=== PATIENT | female | born 1950 | race Caucasian/White ===

== ENCOUNTER → 2017-12-10 | Outpatient (CLI) | payer MEDICARE, OTHER | LOC: M CARPUL 09:07 | DX: Z51.81 Encounter for therapeutic drug level monitoring (principal); Z79.899 Other long term (current) drug therapy; C50.919 Malignant neoplasm of unspecified site of unspecified female breast | CPT/HCPCS: 93306 ==

== ENCOUNTER → 2020-10-31 | Outpatient (REF) | payer MEDICARE, OTHER ==
[~2020-10-31] MED LIST: LETR2.5T2 PO
[2020-10-31 11:58] LABS: BASO # 0.1 10^3/uL (0.0-0.2); BASO % 1.4 % (0.0-1.0); EOS # 0.1 10^3/uL (0.0-0.5); EOS % 0.9 % (0.0-3.0); HEMATOCRIT 36.4 % (36.0-47.0); HEMOGLOBIN 12.3 g/dl (12.0-15.5); LYMPH # 1.1 10^3/uL (1.5-5.0); LYMPH % 19.4 % (24.0-44.0); MEAN CORPUSCULAR HEMOGLOBIN 31.1 pg (27.0-33.0); MEAN CORPUSCULAR HGB CONC 33.8 g/dl (32.0-36.5); MEAN CORPUSCULAR VOLUME 91.9 fl (80.0-96.0); MONO # 0.6 10^3/uL (0.0-0.8); MONO % 10.5 % (2.0-8.0); NEUTROPHILS # 3.8 10^3/uL (1.5-8.5); NEUTROPHILS % 67.3 % (36.0-66.0); PLATELET COUNT, AUTOMATED 255 10^3/uL (150-450); RED BLOOD COUNT 3.96 10^6/uL (4.00-5.40); WHITE BLOOD COUNT 5.7 10^3/uL (4.0-10.0)
[2020-10-31 12:55] LABS: ALBUMIN 3.6 GM/DL (3.2-5.2); ALT/SGPT 23 U/L (12-78); BILIRUBIN,TOTAL 0.6 MG/DL (0.2-1.0); BLOOD UREA NITROGEN 12 MG/DL (7-18); CALCIUM LEVEL 8.3 MG/DL (8.8-10.2); CARBON DIOXIDE LEVEL 26 MEQ/L (21-32); CHLORIDE LEVEL 108 MEQ/L (98-107); CREATININE FOR GFR 0.57 MG/DL (0.55-1.30); FERRITIN 12 NG/ML (8-252); GLOMERULAR FILTRATION RATE > 60.0 (>45); GLUCOSE, FASTING 110 MG/DL (70-100); IRON (FE) 52 UG/DL (50-170); PERCENT SATURATION 13.2 % (13.2-45.0); POTASSIUM SERUM 4.1 MEQ/L (3.5-5.1); SODIUM LEVEL 139 MEQ/L (136-145); TOTAL IRON BINDING CAPACITY 394 UG/DL (250-450); TOTAL PROTEIN 6.6 GM/DL (6.4-8.2)
[2020-10-31 14:03] LABS: VITAMIN B12 LEVEL 334 PG/ML (247-911)
== END ==
LOC: M LAB REF 10:38
DX: C50.211 Malignant neoplasm of upper-inner quadrant of right female breast (principal); N39.0 Urinary tract infection, site not specified; D64.81 Anemia due to antineoplastic chemotherapy; R52 Pain, unspecified; Z79.811 Long term (current) use of aromatase inhibitors; M85.80 Other specified disorders of bone density and structure, unspecified site; Z45.2 Encounter for adjustment and management of vascular access device; N64.4 Mastodynia

== ENCOUNTER → 2021-10-10 | Outpatient (CLI) | payer MEDICARE, OTHER ==
[~2021-10-10] MED LIST changes: +METR-265 PO; +NEOM500T PO
== END ==
LOC: M ADAMS 10:10
PROVIDERS: ATTEND Physician Assistant
DX: Z01.818 Encounter for other preprocedural examination (principal); K44.9 Diaphragmatic hernia without obstruction or gangrene; Z79.899 Other long term (current) drug therapy

== ENCOUNTER → 2021-10-10 | Outpatient (REF) | payer MEDICARE, OTHER ==
[~2021-10-10] MED LIST changes: -METR-265 PO; -NEOM500T PO
[2021-10-10 14:39] LABS: BLOOD UREA NITROGEN 15 MG/DL (7-18); CREATININE FOR GFR 0.96 MG/DL (0.55-1.30); GLOMERULAR FILTRATION RATE > 60.0 (>45)
== END ==
LOC: M LABDRWAD 12:59
PROVIDERS: ATTEND Surgery
DX: C18.3 Malignant neoplasm of hepatic flexure (principal)

== ENCOUNTER → 2021-10-10 | Outpatient (REF) | payer MEDICARE, OTHER ==
[2021-10-10 14:13] LABS: APPEARANCE, URINE CLEAR (CLEAR); BACTERIA, URINE AUTO NEGATIVE (NEGATIVE); BILIRUBIN, URINE AUTO NEGATIVE (NEGATIVE); BLOOD, URINE BLOOD NEGATIVE (NEGATIVE); COLOR, URINE YELLOW (YELLOW); GLUCOSE, URINE (UA) AUTO NEGATIVE (NEGATIVE); KETONE, URINE AUTO NEGATIVE (NEGATIVE); LEUKOCYTE ESTERASE, URINE AUTO NEGATIVE (NEGATIVE); MUCUS, URINE SMALL (NEGATIVE); NITRITE, URINE AUTO NEGATIVE (NEGATIVE); PROTEIN, URINE AUTO NEGATIVE (NEGATIVE); RBC, URINE AUTO 0 /HPF (0-3); SPECIFIC GRAVITY URINE AUTO 1.016 (1.002-1.035); SQUAMOUS EPITHELIAL CELL UR AU 0 /HPF (0-6); UROBILINOGEN, URINE AUTO 0.2 mg/dL (0.0-2.0); WBC, URINE AUTO 1 /HPF (0-3)
== END ==
LOC: M SFHCADAM 09:15
PROVIDERS: ATTEND Physician Assistant
DX: Z01.818 Encounter for other preprocedural examination (principal); Z79.899 Other long term (current) drug therapy

== ENCOUNTER → 2021-10-11 | Outpatient (CLI) | payer MEDICARE, OTHER ==
[~2021-10-11] MED LIST changes: +METR-265 PO; +NEOM500T PO
== END ==
LOC: M LABSMTC 09:28
PROVIDERS: ATTEND Anesthesiology
DX: Z20.828 Contact with and (suspected) exposure to other viral communicable diseases (principal); Z11.59 Encounter for screening for other viral diseases

== ENCOUNTER → 2021-10-12 | Outpatient (CLI) | payer MEDICARE, OTHER ==
[~2021-10-12] MED LIST changes: +GASTROGRAFIN SOLUTION 30ML (Q9963) As Ordered ONE; +ISOVUE-370 76% 100ML VIAL As Ordered ONE
== END ==
LOC: M RAD 07:48
PROVIDERS: ATTEND Surgery
DX: C18.9 Malignant neoplasm of colon, unspecified (principal); J98.11 Atelectasis; K44.9 Diaphragmatic hernia without obstruction or gangrene

== ENCOUNTER 2021-10-13 06:02 | Inpatient (IN) | payer MEDICARE, OTHER ==
[~2021-10-13] VITALS: Ht 162.6 cm; Wt 71.1 kg
[2021-10-13] VITALS (7 sets, daily range): BP systolic 117–139; BP diastolic 70–80
[~2021-10-13 06:02] MED LIST changes: +ERTAPENEM SODIUM 1 GM in NS MINI-BAG PLUS 50 ML IV ONE; -GASTROGRAFIN SOLUTION 30ML (Q9963) As Ordered ONE; -ISOVUE-370 76% 100ML VIAL As Ordered ONE; -METR-265 PO; -NEOM500T PO
[2021-10-13] MEDS ORDERED: LR 1,000 ML IV SCH ×2 (06:30→10:15)
[2021-10-13] MEDS ORDERED: METR-265 PO (06:42)
[2021-10-13] MEDS ORDERED: NEOM500T PO (06:42)
[2021-10-13] MEDS ORDERED: ONDANSETRON 4MG 2ML VIAL As Ordered ONE (07:14)
[2021-10-13] MEDS ORDERED: ROCURONIUM BROMIDE 50 MG/5 ML VIAL As Ordered ONE ×2 (07:14→08:47)
[2021-10-13] MEDS ORDERED: dexameTHASONE 4 MG/ML 1ML VIAL (J1100 PER 1MG) As Ordered ONE (07:14)
[2021-10-13] MEDS ORDERED: ACETAMINOPHEN 1000MG 100ML IV BTL (OFIRMEV) (J0131 PER 10MG) As Ordered ONE (07:14)
[2021-10-13] MEDS ORDERED: propofoL 200 MG/20 ML VIAL As Ordered ONE (07:14)
[2021-10-13] MEDS ORDERED: LIDOCAINE 2% 100MG/5ML SDV (FOR ANES.) As Ordered ONE (07:14)
[2021-10-13] MEDS ORDERED: fentaNYL 100 MCG/2 ML INJECTION As Ordered ONE ×2 (07:17→08:55)
[2021-10-13] MEDS ORDERED: MIDAZOLAM INJ 2MG/2ML VIAL (J2250 PER 1MG) As Ordered ONE (07:17)
[2021-10-13] MEDS ORDERED: BUPIVACAINE/EPIN 0.25% 30 ML VIAL As Ordered ONE (07:29)
[2021-10-13] MEDS ORDERED: GLUCAGON INJ 1MG VIAL As Ordered ONE (07:30)
[2021-10-13] MEDS ORDERED: PHENYLEPHRINE 10MG/ML 1ML VIAL (J2370 PER 1) As Ordered ONE (08:18)
[2021-10-13] MEDS ORDERED: ePHEDrine SULFATE 25 MG/5 ML(5MG/ML) SYRINGE As Ordered ONE (08:48)
[2021-10-13] MEDS ORDERED: PHENYLephrine 500MCG 5ML (100MCG/ML) SYRINGE As Ordered ONE (08:48)
[2021-10-13] MEDS ORDERED: KETOROLAC 60MG 2ML VIAL As Ordered ONE (08:49)
[2021-10-13] MEDS ORDERED: SUGAMMADEX SODIUM 500 MG/5 ML VIAL (BRIDION) As Ordered ONE (08:49)
[2021-10-13] MEDS ORDERED: BUPIVACAINE HCL 0.25% 10ML VIAL As Ordered ONE (09:52)
[2021-10-13] MEDS ORDERED: BUPIVACAINE LIPOSOME/PF 1.3% 20ML VIAL (13.3MG/ML)(EXPAREL) As Ordered ONE (09:52)
[2021-10-13] MEDS ORDERED: METOCLOPRAMIDE INJ 10MG/2ML VIAL (J2765 PER 1) As Ordered ONE (10:09)
[2021-10-13] MEDS ORDERED: fentaNYL 100 MCG/2 ML INJECTION IV PRN (10:15)
[2021-10-13] MEDS ORDERED: ONDANSETRON 4MG 2ML VIAL IV PRN (10:15)
[2021-10-13] MEDS ORDERED: HYDROMORPHONE HCL 0.5 MG/ 0.5 ML SYRINGE (J1170 PER 1) IV PRN (10:15)
[2021-10-13] MEDS ORDERED: oxyCODONE 5MG TAB PO PRN (10:15)
[2021-10-13] MEDS ORDERED: MORPHINE 2 MG/ML 1ML VIAL IV PRN ×2 (11:10)
[2021-10-13] MEDS ORDERED: ACETAMINOPHEN TAB 650MG DOSE (2X325MG) PO PRN (11:10)
[2021-10-13] MEDS: NS 1,000 ML IV SCH ×2 (13:28→21:01)
[2021-10-13] MEDS: KETOROLAC 30 MG/ML 1ML VIAL IV SCH ×2 (16:14→22:00)
[2021-10-14 02:00] VITALS: BP 125/72
[2021-10-14] MEDS: KETOROLAC 30 MG/ML 1ML VIAL IV SCH ×4 (04:00→22:02)
[2021-10-14] MEDS: NS 1,000 ML IV SCH ×2 (05:07→11:19)
[2021-10-14 06:00] VITALS: BP 123/74
[2021-10-14] MEDS ORDERED: cefTRIAXone SOD 1 GM in D5W MINI-BAG PLUS 50 ML IV ONE (06:10)
[2021-10-14 08:12] LABS: HEMATOCRIT 30.9 % (36.0-47.0); HEMOGLOBIN 10.4 g/dl (12.0-15.5); MEAN CORPUSCULAR HEMOGLOBIN 30.3 pg (27.0-33.0); MEAN CORPUSCULAR HGB CONC 33.7 g/dl (32.0-36.5); MEAN CORPUSCULAR VOLUME 90.1 fl (80.0-96.0); PLATELET COUNT, AUTOMATED 233 10^3/uL (150-450); RED BLOOD COUNT 3.43 10^6/uL (4.00-5.40)
[2021-10-14 08:35] LABS: BLOOD UREA NITROGEN 5 MG/DL (7-18); CALCIUM LEVEL 8.3 MG/DL (8.8-10.2); CARBON DIOXIDE LEVEL 26 MEQ/L (21-32); CHLORIDE LEVEL 113 MEQ/L (98-107); CREATININE FOR GFR 0.65 MG/DL (0.55-1.30); GLOMERULAR FILTRATION RATE > 60.0 (>45); GLUCOSE, FASTING 99 MG/DL (70-100); POTASSIUM SERUM 3.7 MEQ/L (3.5-5.1); SODIUM LEVEL 144 MEQ/L (136-145)
[2021-10-14] MEDS: PANTOPRAZOLE 40MG VIAL IV SCH (08:49)
[2021-10-14 10:00] VITALS: BP 124/74
[2021-10-14 14:00] VITALS: BP 126/76
[2021-10-14 18:00] VITALS: BP 130/78
[2021-10-14 21:27] VITALS: BP 126/84
[2021-10-15] VITALS (7 sets, daily range): BP systolic 106–134; BP diastolic 60–79
[2021-10-15] MEDS: KETOROLAC 30 MG/ML 1ML VIAL IV SCH ×5 (04:00→21:59)
[2021-10-15 06:05] LABS: HEMATOCRIT 34.5 % (36.0-47.0); HEMOGLOBIN 11.1 g/dl (12.0-15.5); MEAN CORPUSCULAR HEMOGLOBIN 29.1 pg (27.0-33.0); MEAN CORPUSCULAR HGB CONC 32.2 g/dl (32.0-36.5); MEAN CORPUSCULAR VOLUME 90.3 fl (80.0-96.0); PLATELET COUNT, AUTOMATED 235 10^3/uL (150-450); RED BLOOD COUNT 3.82 10^6/uL (4.00-5.40); WHITE BLOOD COUNT 12.1 10^3/uL (4.0-10.0)
[2021-10-15 06:21] LABS: BLOOD UREA NITROGEN 5 MG/DL (7-18); CALCIUM LEVEL 8.5 MG/DL (8.8-10.2); CARBON DIOXIDE LEVEL 29 MEQ/L (21-32); CHLORIDE LEVEL 109 MEQ/L (98-107); CREATININE FOR GFR 0.73 MG/DL (0.55-1.30); GLOMERULAR FILTRATION RATE > 60.0 (>45); GLUCOSE, FASTING 111 MG/DL (70-100); POTASSIUM SERUM 3.3 MEQ/L (3.5-5.1); SODIUM LEVEL 143 MEQ/L (136-145)
[2021-10-15] MEDS ORDERED: POTASSIUM CHLORIDE 10MEQ SR TABLET PO ONE (07:00)
[2021-10-15] MEDS ORDERED: NORCO, ANEXSIA 5/325MG TABLET (HYDROcodone/ACETAMINOPHEN) PO PRN (08:15)
[2021-10-15] MEDS: PANTOPRAZOLE 40MG VIAL IV SCH (08:22)
[2021-10-15] MEDS ORDERED: ISOVUE-370 76% 100ML VIAL As Ordered ONE (11:19)
[2021-10-15] MEDS ORDERED: AZITHROMYCIN INJ 500 MG, VIAL MATE ADAPTER 1 EACH in NS 250 ML IV SCH (20:00)
[2021-10-15] MEDS ORDERED: NS 500 ML IV ONE (23:45)
[2021-10-16] VITALS (9 sets, daily range): BP systolic 109–133; BP diastolic 57–78; O2SAT 92
[2021-10-16] MEDS ORDERED: cefTRIAXone SOD 1 GM in D5W MINI-BAG PLUS 50 ML IV SCH ×2
[2021-10-16] MEDS ORDERED: NS 1,000 ML IV ONE ×3 (00:05→10:20)
[2021-10-16 00:29] LABS: MAGNESIUM LEVEL 1.5 MG/DL (1.8-2.4)
[2021-10-16] MEDS: FLUTICASONE PROP 0.05% NASAL SPRAY 16 GM (FLONASE) NARES SCH ×3 (00:29→21:08)
[2021-10-16] MEDS: ALBUTEROL SULFATE 2.5 MG/0.5 ML INH NEB SOLN NEB SCH ×5 (00:29→20:16)
[2021-10-16] MEDS ORDERED: POTASSIUM CHLORIDE 10MEQ SR TABLET PO ONE (01:00)
[2021-10-16] MEDS: MAGNESIUM OXIDE 400MG TAB (MAG-OX) PO SCH ×2 (02:23→14:00)
[2021-10-16] MEDS: KETOROLAC 30 MG/ML 1ML VIAL IV SCH ×4 (03:00→21:09)
[2021-10-16 05:48] LABS: HEMATOCRIT 33.5 % (36.0-47.0); HEMOGLOBIN 11.1 g/dl (12.0-15.5); MEAN CORPUSCULAR HEMOGLOBIN 29.4 pg (27.0-33.0); MEAN CORPUSCULAR HGB CONC 33.1 g/dl (32.0-36.5); MEAN CORPUSCULAR VOLUME 88.9 fl (80.0-96.0); PLATELET COUNT, AUTOMATED 238 10^3/uL (150-450); RED BLOOD COUNT 3.77 10^6/uL (4.00-5.40); WHITE BLOOD COUNT 11.3 10^3/uL (4.0-10.0)
[2021-10-16 06:15] LABS: BLOOD UREA NITROGEN 10 MG/DL (7-18); CALCIUM LEVEL 7.9 MG/DL (8.8-10.2); CARBON DIOXIDE LEVEL 24 MEQ/L (21-32); CHLORIDE LEVEL 107 MEQ/L (98-107); CREATININE FOR GFR 0.76 MG/DL (0.55-1.30); GLOMERULAR FILTRATION RATE > 60.0 (>45); GLUCOSE, FASTING 119 MG/DL (70-100); POTASSIUM SERUM 3.8 MEQ/L (3.5-5.1); SODIUM LEVEL 139 MEQ/L (136-145)
[2021-10-16] MEDS ORDERED: NS 1,000 ML IV SCH (08:45)
[2021-10-16] MEDS ORDERED: PIPERACILLIN/TAZOBACTAM SOD 3.375 GM in D5W MINI-BAG PLUS 50 ML IV SCH ×2 (09:00→17:00)
[2021-10-16 10:08] LABS: ALBUMIN 2.8 GM/DL (3.2-5.2); BILIRUBIN,DIRECT 0.3 MG/DL (0.0-0.2); BILIRUBIN,TOTAL 0.9 MG/DL (0.2-1.0); CK-MB VALUE MASS < 1.0 NG/ML (<3.6); CPK CREATINE PHOSPHOKINASE 76 U/L (26-192); MAGNESIUM LEVEL 1.6 MG/DL (1.8-2.4); MB/CK RELATIVE INDEX 1.32 (< OR =4); TOTAL PROTEIN 6.9 GM/DL (6.4-8.2)
[2021-10-16] MEDS: PANTOPRAZOLE 40MG VIAL IV SCH (10:50)
[2021-10-16] MEDS ORDERED: VANCOMYCIN HCL 1,000 MG, VIAL MATE ADAPTER 1 EACH in NS 250 ML IV SCH (10:55)
[2021-10-16] MEDS: MAG SULF 1GM/100ML (MAG RUN) 1 GM in IV 1 EA IV SCH ×2 (11:00→12:00)
[2021-10-16 12:25] LABS: CK-MB VALUE MASS 1.2 NG/ML (<3.6); CPK CREATINE PHOSPHOKINASE 59 U/L (26-192); MB/CK RELATIVE INDEX 2.03 (< OR =4)
[2021-10-16] MEDS ORDERED: VANCOMYCIN HCL 1,000 MG, VIAL MATE ADAPTER 1 EACH in NS 250 ML IV ONE (13:00)
[2021-10-16] MEDS ORDERED: ONDANSETRON 4MG 2ML VIAL IV PRN (13:00)
[2021-10-16] MEDS: SIMETHICONE 80MG CHEW TAB PO SCH ×3 (13:00→21:09)
[2021-10-16] MEDS ORDERED: VANCOMYCIN HCL 750 MG, VIAL MATE ADAPTER 1 EACH in NS 250 ML IV ONE (14:00)
[2021-10-16] MEDS ORDERED: LIDOCAINE 1% MDV 20ML VIAL As Ordered ONE (14:53)
[2021-10-16 15:30] LABS: PH BODY FLUID 7.504 UNITS (NOT ESTABLISHED); SOURCE, BODY FLUID pH PLEURAL
[2021-10-16 15:58] LABS: APPEARANCE, BODY FLUID CLOUDY (CLEAR); PLEURAL FL COLOR AMBER (COLORLESS); SOURCE, BODY FLUID PLEURAL
[2021-10-16 17:34] LABS: AMYLASE, BODY FLUID 1001 U/L (NOT ESTABLISHED); CHOLESTEROL, BODY FLUID < 50 MG/DL (NOT ESTABLISHED); LDH, BODY FLUID 517 U/L (NOT ESTABLISHED); SOURCE, BODY FLUID ALBUMIN PLEURAL; SOURCE, BODY FLUID AMYLASE PLEURAL; SOURCE, BODY FLUID CHOL PLEURAL; SOURCE, BODY FLUID GLUCOSE PLEURAL; SOURCE, BODY FLUID LDH PLEURAL; SOURCE, BODY FLUID TOT PROTEIN PLEURAL; SOURCE, BODY FLUID TRIG PLEURAL; TOTAL PROTEIN, BODY FLUID 3.2 G/DL (NOT ESTABLISHED); TRIGLYCERIDE, BODY FLUID 38 MG/DL (NOT ESTABLISHED)
[2021-10-16] MEDS: PIPERACILLIN/TAZOBACTAM SOD 3.375 GM in D5W MINI-BAG PLUS 50 ML IV SCH (18:39)
[2021-10-17] MEDS ORDERED: VANCOMYCIN HCL 750 MG, VIAL MATE ADAPTER 1 EACH in NS 250 ML IV SCH ×3
[2021-10-17] MEDS: PIPERACILLIN/TAZOBACTAM SOD 3.375 GM in D5W MINI-BAG PLUS 50 ML IV SCH ×4 (01:37→18:21)
[2021-10-17] MEDS: KETOROLAC 30 MG/ML 1ML VIAL IV SCH ×4 (04:00→22:54)
[2021-10-17 04:26] VITALS: BP 103/58
[2021-10-17] MEDS: ALBUTEROL SULFATE 2.5 MG/0.5 ML INH NEB SOLN NEB SCH ×3 (07:29→20:00)
[2021-10-17 07:44] LABS: HEMATOCRIT 30.7 % (36.0-47.0); HEMOGLOBIN 10.5 g/dl (12.0-15.5); MEAN CORPUSCULAR HEMOGLOBIN 30.1 pg (27.0-33.0); MEAN CORPUSCULAR HGB CONC 34.2 g/dl (32.0-36.5); PLATELET COUNT, AUTOMATED 250 10^3/uL (150-450); RED BLOOD COUNT 3.49 10^6/uL (4.00-5.40); WHITE BLOOD COUNT 15.7 10^3/uL (4.0-10.0)
[2021-10-17 07:54] VITALS: BP 107/60
[2021-10-17 08:04] LABS: BLOOD UREA NITROGEN 14 MG/DL (7-18); CALCIUM LEVEL 8.3 MG/DL (8.8-10.2); CARBON DIOXIDE LEVEL 21 MEQ/L (21-32); CHLORIDE LEVEL 107 MEQ/L (98-107); CREATININE FOR GFR 0.82 MG/DL (0.55-1.30); GLOMERULAR FILTRATION RATE > 60.0 (>45); GLUCOSE, FASTING 103 MG/DL (70-100); POTASSIUM SERUM 3.6 MEQ/L (3.5-5.1); SODIUM LEVEL 135 MEQ/L (136-145)
[2021-10-17] MEDS: GASTROGRAFIN SOLUTION 30ML PO SCH ×4 (09:00→20:44)
[2021-10-17] MEDS: FLUTICASONE PROP 0.05% NASAL SPRAY 16 GM (FLONASE) NARES SCH ×2 (09:11→22:55)
[2021-10-17] MEDS: SIMETHICONE 80MG CHEW TAB PO SCH ×6 (09:12→21:00)
[2021-10-17] MEDS: PANTOPRAZOLE 40MG VIAL IV SCH (09:12)
[2021-10-17 11:57] VITALS: BP 116/67
[2021-10-17] MEDS ORDERED: VANCOMYCIN HCL 1,000 MG, VIAL MATE ADAPTER 1 EACH in NS 250 ML IV SCH ×2 (12:00→20:00)
[2021-10-17] MEDS ORDERED: VANCOMYCIN HCL 1,000 MG, VIAL MATE ADAPTER 1 EACH in NS 250 ML IV ONE (12:01)
[2021-10-17 15:53] VITALS: BP 119/66
[2021-10-17 20:00] VITALS: BP 115/56
[2021-10-17] MEDS ORDERED: ISOVUE-370 76% 100ML VIAL As Ordered ONE (21:40)
[2021-10-18] VITALS (17 sets, daily range): BP systolic 100–146; BP diastolic 55–77; O2SAT 91–100
[2021-10-18] MEDS: PIPERACILLIN/TAZOBACTAM SOD 3.375 GM in D5W MINI-BAG PLUS 50 ML IV SCH ×4 (01:37→18:00)
[2021-10-18] MEDS: ALBUTEROL SULFATE 2.5 MG/0.5 ML INH NEB SOLN NEB SCH ×4 (02:00→19:53)
[2021-10-18] MEDS: KETOROLAC 30 MG/ML 1ML VIAL IV SCH ×2 (04:13→09:25)
[2021-10-18 07:47] LABS: HEMATOCRIT 27.2 % (36.0-47.0); HEMOGLOBIN 9.1 g/dl (12.0-15.5); MEAN CORPUSCULAR HEMOGLOBIN 29.6 pg (27.0-33.0); MEAN CORPUSCULAR HGB CONC 33.5 g/dl (32.0-36.5); MEAN CORPUSCULAR VOLUME 88.6 fl (80.0-96.0); PLATELET COUNT, AUTOMATED 213 10^3/uL (150-450); RED BLOOD COUNT 3.07 10^6/uL (4.00-5.40)
[2021-10-18 08:04] LABS: CALCIUM LEVEL 8.5 MG/DL (8.8-10.2); GLOMERULAR FILTRATION RATE 58.7 (>45); POTASSIUM SERUM 3.1 MEQ/L (3.5-5.1)
[2021-10-18] MEDS ORDERED: NS 500 ML IV ONE (08:25)
[2021-10-18] MEDS: SIMETHICONE 80MG CHEW TAB PO SCH ×4 (09:00→21:02)
[2021-10-18] MEDS: FLUTICASONE PROP 0.05% NASAL SPRAY 16 GM (FLONASE) NARES SCH ×2 (09:25→21:03)
[2021-10-18] MEDS: PANTOPRAZOLE 40MG VIAL IV SCH (09:25)
[2021-10-18] MEDS: KCL 10MEQ/100ML SWI (KRUN) 10 MEQ in IV 1 EA IV SCH ×4 (10:18→15:49)
[2021-10-18] MEDS: VANCOMYCIN HCL 750 MG, VIAL MATE ADAPTER 1 EACH in NS 250 ML IV SCH ×2 (11:29→21:02)
[2021-10-18] MEDS ORDERED: LIDOCAINE 1% MDV 20ML VIAL As Ordered ONE ×2 (11:57→13:00)
[2021-10-19] VITALS (23 sets, daily range): BP systolic 94–148; BP diastolic 55–86; O2SAT 90–95
[2021-10-19] MEDS: ALBUTEROL SULFATE 2.5 MG/0.5 ML INH NEB SOLN NEB SCH ×4 (02:00→20:00)
[2021-10-19] MEDS: PIPERACILLIN/TAZOBACTAM SOD 3.375 GM in D5W MINI-BAG PLUS 50 ML IV SCH ×4 (02:10→18:14)
[2021-10-19 06:12] LABS: HEMATOCRIT 27.8 % (36.0-47.0); MEAN CORPUSCULAR HEMOGLOBIN 28.4 pg (27.0-33.0); MEAN CORPUSCULAR HGB CONC 32.4 g/dl (32.0-36.5); MEAN CORPUSCULAR VOLUME 87.7 fl (80.0-96.0); PLATELET COUNT, AUTOMATED 226 10^3/uL (150-450); RED BLOOD COUNT 3.17 10^6/uL (4.00-5.40); WHITE BLOOD COUNT 9.6 10^3/uL (4.0-10.0)
[2021-10-19 06:31] LABS: BLOOD UREA NITROGEN 9 MG/DL (7-18); CARBON DIOXIDE LEVEL 24 MEQ/L (21-32); CHLORIDE LEVEL 110 MEQ/L (98-107); CREATININE FOR GFR 0.87 MG/DL (0.55-1.30); GLOMERULAR FILTRATION RATE > 60.0 (>45); GLUCOSE, FASTING 104 MG/DL (70-100); POTASSIUM SERUM 3.3 MEQ/L (3.5-5.1); SODIUM LEVEL 140 MEQ/L (136-145)
[2021-10-19] MEDS ORDERED: POTASSIUM CHLORIDE 10MEQ SR TABLET PO ONE (07:45)
[2021-10-19] MEDS: PANTOPRAZOLE 40MG VIAL IV SCH (08:04)
[2021-10-19] MEDS: FLUTICASONE PROP 0.05% NASAL SPRAY 16 GM (FLONASE) NARES SCH ×2 (08:05→21:00)
[2021-10-19] MEDS: SIMETHICONE 80MG CHEW TAB PO SCH ×4 (08:05→21:20)
[2021-10-19] MEDS: VANCOMYCIN HCL 750 MG, VIAL MATE ADAPTER 1 EACH in NS 250 ML IV SCH ×2 (08:05→21:20)
[2021-10-19 08:47] LABS: VANCOMYCIN RANDOM 14.7 UG/ML
[2021-10-19] MEDS: FERROUS SULFATE 325MG TAB PO SCH ×2 (10:48→21:00)
[2021-10-20] VITALS (22 sets, daily range): BP systolic 94–142; BP diastolic 55–72; O2SAT 84–98
[2021-10-20] MEDS: PIPERACILLIN/TAZOBACTAM SOD 3.375 GM in D5W MINI-BAG PLUS 50 ML IV SCH ×4 (01:49→18:28)
[2021-10-20] MEDS: ALBUTEROL SULFATE 2.5 MG/0.5 ML INH NEB SOLN NEB SCH ×4 (02:34→19:31)
[2021-10-20 06:07] LABS: HEMATOCRIT 25.8 % (36.0-47.0); HEMOGLOBIN 8.5 g/dl (12.0-15.5); MEAN CORPUSCULAR HEMOGLOBIN 28.8 pg (27.0-33.0); MEAN CORPUSCULAR HGB CONC 32.9 g/dl (32.0-36.5); MEAN CORPUSCULAR VOLUME 87.5 fl (80.0-96.0); PLATELET COUNT, AUTOMATED 260 10^3/uL (150-450); RED BLOOD COUNT 2.95 10^6/uL (4.00-5.40); WHITE BLOOD COUNT 8.9 10^3/uL (4.0-10.0)
[2021-10-20 06:32] LABS: BLOOD UREA NITROGEN 5 MG/DL (7-18); CARBON DIOXIDE LEVEL 23 MEQ/L (21-32); CHLORIDE LEVEL 108 MEQ/L (98-107); CREATININE FOR GFR 0.77 MG/DL (0.55-1.30); GLOMERULAR FILTRATION RATE > 60.0 (>45); GLUCOSE, FASTING 100 MG/DL (70-100); POTASSIUM SERUM 3.1 MEQ/L (3.5-5.1); SODIUM LEVEL 139 MEQ/L (136-145)
[2021-10-20] MEDS ORDERED: POTASSIUM CHLORIDE 10MEQ SR TABLET PO ONE (07:35)
[2021-10-20] MEDS: SIMETHICONE 80MG CHEW TAB PO SCH ×5 (08:39→20:54)
[2021-10-20] MEDS: VANCOMYCIN HCL 750 MG, VIAL MATE ADAPTER 1 EACH in NS 250 ML IV SCH ×2 (08:39→20:52)
[2021-10-20] MEDS: FERROUS SULFATE 325MG TAB PO SCH ×2 (08:39→20:52)
[2021-10-20] MEDS: PANTOPRAZOLE 40MG VIAL IV SCH (08:39)
[2021-10-20] MEDS: FLUTICASONE PROP 0.05% NASAL SPRAY 16 GM (FLONASE) NARES SCH ×2 (08:39→20:52)
[2021-10-20] MEDS: KCL 10MEQ/100ML SWI (KRUN) 10 MEQ in IV 1 EA IV SCH ×4 (08:40→12:39)
[2021-10-21] MEDS: PIPERACILLIN/TAZOBACTAM SOD 3.375 GM in D5W MINI-BAG PLUS 50 ML IV SCH ×2 (01:09→06:26)
[2021-10-21] MEDS: ALBUTEROL SULFATE 2.5 MG/0.5 ML INH NEB SOLN NEB SCH ×3 (02:09→13:46)
[2021-10-21 05:33] VITALS: BP 135/73
[2021-10-21] MEDS ORDERED: SPIRONOLACTONE 25 MG TAB PO SCH (09:00)
[2021-10-21] MEDS ORDERED: bisoproloL fumarate 5 MG TAB PO SCH (09:00)
[2021-10-21] MEDS: PANTOPRAZOLE 40MG VIAL IV SCH (09:00)
[2021-10-21 09:56] LABS: MEAN CORPUSCULAR HEMOGLOBIN 28.7 pg (27.0-33.0); MEAN CORPUSCULAR HGB CONC 33.3 g/dl (32.0-36.5); PLATELET COUNT, AUTOMATED 364 10^3/uL (150-450); RED BLOOD COUNT 3.14 10^6/uL (4.00-5.40); WHITE BLOOD COUNT 10.7 10^3/uL (4.0-10.0)
[2021-10-21] MEDS: SIMETHICONE 80MG CHEW TAB PO SCH ×2 (09:57→13:51)
[2021-10-21] MEDS: FERROUS SULFATE 325MG TAB PO SCH (09:57)
[2021-10-21] MEDS: FLUTICASONE PROP 0.05% NASAL SPRAY 16 GM (FLONASE) NARES SCH (09:58)
[2021-10-21 10:24] LABS: ALT/SGPT 16 U/L (12-78); BILIRUBIN,TOTAL 0.6 MG/DL (0.2-1.0); BLOOD UREA NITROGEN 4 MG/DL (7-18); CALCIUM LEVEL 8.5 MG/DL (8.8-10.2); CARBON DIOXIDE LEVEL 23 MEQ/L (21-32); CHLORIDE LEVEL 106 MEQ/L (98-107); CREATININE FOR GFR 0.76 MG/DL (0.55-1.30); FREE T4 1.06 NG/DL (0.76-1.46); GLOMERULAR FILTRATION RATE > 60.0 (>45); GLUCOSE, FASTING 113 MG/DL (70-100); MAGNESIUM LEVEL 2.1 MG/DL (1.8-2.4); SODIUM LEVEL 139 MEQ/L (136-145); TOTAL PROTEIN 5.8 GM/DL (6.4-8.2)
[2021-10-21 10:34] LABS: ATYPICAL LYMPH 3 % (0-5); EOSINOPHILS 5 % (0-3); LYMPHOCYTES 12 % (16-44); METAMYELOCYTES 2 % (0-0); MONOCYTES 6 % (0-5); NEUTROPHILS 69 % (28-66)
[2021-10-21 10:36] LABS: PLATELET ESTIMATE NORMAL (NORMAL)
[2021-10-21] MEDS ORDERED: POTASSIUM CHLORIDE 10MEQ SR TABLET PO ONE ×2 (13:00→14:00)
[2021-10-21] MEDS ORDERED: KCL 10MEQ/100ML SWI (KRUN) 10 MEQ in IV 1 EA IV SCH (13:00)
[2021-10-21 13:51] VITALS: BP 136/76
[2021-10-21] MEDS ORDERED: K-TA1TAB PO (13:54)
[2021-10-21] MEDS ORDERED: FERR1TAB8 PO (13:54)
[2021-10-21] MEDS ORDERED: ALDA25TA2 PO (13:54)
[2021-10-21 14:00] VITALS: BP 136/79
[2021-10-23 18:07] LABS: BODY FLUID CULTURE Not indicated. (.); LEGIONELLA ANTIGEN URINE Negative (Negative); ORGANISM ID Not indicated. (.); SPECIMEN SOURCE Urine (.); URINE STREP PNEUMONIAE ANTIGEN Negative (Negative)
== END 2021-10-21 15:02 | disposition home or self-care (01) | DRG 329 ==
LOC: M OR 06:02 → M MSPAV 13:23 → M PCU 10-16 12:24 → M MSPAV 10-20 16:54
PROVIDERS: ADMIT Surgery; ATTEND Surgery
PROC: 0DTK4ZZ Resection of Ascending Colon, Percutaneous Endoscopic Approach (ICD-10-PCS; principal; 2021-10-13 07:30)
PROC: 0W993ZZ Drainage of Right Pleural Cavity, Percutaneous Approach (ICD-10-PCS; 2021-10-16)
PROC: 0D9W30Z Drainage of Peritoneum with Drainage Device, Percutaneous Approach (ICD-10-PCS; 2021-10-18)
PROC: 0W9J30Z Drainage of Pelvic Cavity with Drainage Device, Percutaneous Approach (ICD-10-PCS; 2021-10-18)
DX: C18.3 Malignant neoplasm of hepatic flexure (principal); J18.9 Pneumonia, unspecified organism; J98.11 Atelectasis; J90 Pleural effusion, not elsewhere classified; K56.7 Ileus, unspecified; E87.2 Acidosis; R18.8 Other ascites; E83.42 Hypomagnesemia; R09.02 Hypoxemia; Z85.3 Personal history of malignant neoplasm of breast; Z92.21 Personal history of antineoplastic chemotherapy; Z86.16 Personal history of COVID-19; E87.6 Hypokalemia; D72.829 Elevated white blood cell count, unspecified; R00.0 Tachycardia, unspecified; D64.9 Anemia, unspecified; Z88.8 Allergy status to other drugs, medicaments and biological substances; Z79.899 Other long term (current) drug therapy; K44.9 Diaphragmatic hernia without obstruction or gangrene

== ENCOUNTER → 2021-10-26 | Outpatient (REF) | payer MEDICARE, OTHER ==
[~2021-10-26] MED LIST changes: +ALDA25TA2 PO; -ERTAPENEM SODIUM 1 GM in NS MINI-BAG PLUS 50 ML IV ONE; +FERR1TAB8 PO; +K-TA1TAB PO; +METR-265 PO; +NEOM500T PO
[2021-10-26 14:00] LABS: BASO # 0.1 10^3/uL (0.0-0.2); BASO % 0.7 % (0.0-1.0); HEMATOCRIT 30.4 % (36.0-47.0); HEMOGLOBIN 9.5 g/dl (12.0-15.5); LYMPH # 1.2 10^3/uL (1.5-5.0); MEAN CORPUSCULAR HEMOGLOBIN 28.9 pg (27.0-33.0); MEAN CORPUSCULAR HGB CONC 31.3 g/dl (32.0-36.5); MEAN CORPUSCULAR VOLUME 92.4 fl (80.0-96.0); MONO % 6.4 % (2.0-8.0); NEUTROPHILS # 12.9 10^3/uL (1.5-8.5); NEUTROPHILS % 83.9 % (36.0-66.0); PLATELET COUNT, AUTOMATED 965 10^3/uL (150-450); RED BLOOD COUNT 3.29 10^6/uL (4.00-5.40); WHITE BLOOD COUNT 15.4 10^3/uL (4.0-10.0)
[2021-10-26 14:28] LABS: ALBUMIN 2.3 GM/DL (3.2-5.2); ALT/SGPT 15 U/L (12-78); BILIRUBIN,TOTAL 0.4 MG/DL (0.2-1.0); BLOOD UREA NITROGEN 9 MG/DL (7-18); CALCIUM LEVEL 9.2 MG/DL (8.8-10.2); CARBON DIOXIDE LEVEL 26 MEQ/L (21-32); CHLORIDE LEVEL 103 MEQ/L (98-107); CREATININE FOR GFR 0.76 MG/DL (0.55-1.30); GLOMERULAR FILTRATION RATE > 60.0 (>45); GLUCOSE, FASTING 148 MG/DL (70-100); MAGNESIUM LEVEL 2.5 MG/DL (1.8-2.4); POTASSIUM SERUM 4.4 MEQ/L (3.5-5.1); SODIUM LEVEL 138 MEQ/L (136-145)
== END ==
LOC: M SFHCADAM 08:30
PROVIDERS: ATTEND Physician Assistant
DX: D64.9 Anemia, unspecified (principal); E87.6 Hypokalemia

== ENCOUNTER → 2021-10-27 | Outpatient (CLI) | payer MEDICARE, OTHER | LOC: M ADAMS 13:14 | PROVIDERS: ATTEND Physician Assistant | DX: J90 Pleural effusion, not elsewhere classified (principal); K44.9 Diaphragmatic hernia without obstruction or gangrene ==

== ENCOUNTER → 2021-10-27 | Outpatient (REF) | payer MEDICARE, OTHER ==
[2021-10-27 14:18] LABS: APPEARANCE, URINE HAZY (CLEAR); BACTERIA, URINE AUTO NEGATIVE (NEGATIVE); BILIRUBIN, URINE AUTO NEGATIVE (NEGATIVE); BLOOD, URINE BLOOD 1+ (NEGATIVE); COLOR, URINE YELLOW (YELLOW); GLUCOSE, URINE (UA) AUTO NEGATIVE (NEGATIVE); KETONE, URINE AUTO NEGATIVE (NEGATIVE); LEUKOCYTE ESTERASE, URINE AUTO NEGATIVE (NEGATIVE); MUCUS, URINE SMALL (NEGATIVE); NITRITE, URINE AUTO NEGATIVE (NEGATIVE); PROTEIN, URINE AUTO 1+ mg/dL (NEGATIVE); RBC, URINE AUTO 1 /HPF (0-3); SPECIFIC GRAVITY URINE AUTO 1.018 (1.002-1.035); SQUAMOUS EPITHELIAL CELL UR AU 0 /HPF (0-6); UROBILINOGEN, URINE AUTO 0.2 mg/dL (0.0-2.0); WBC, URINE AUTO 8 /HPF (0-3)
[2021-10-27 14:47] LABS: PERCENT SATURATION 5.4 % (13.2-45.0)
== END ==
LOC: M SFHCADAM 12:20
PROVIDERS: ATTEND Physician Assistant
DX: E61.1 Iron deficiency (principal); R50.9 Fever, unspecified; R19.7 Diarrhea, unspecified

== ENCOUNTER → 2021-11-29 | Outpatient (CLI) | payer MEDICARE, OTHER | LOC: M ADAMS 10:31 | PROVIDERS: ATTEND Physician Assistant | DX: E61.1 Iron deficiency (principal) ==

== ENCOUNTER → 2022-01-09 | Outpatient (CLI) | payer MEDICARE, OTHER | LOC: M ADAMS 09:57 | PROVIDERS: ATTEND Physician Assistant | DX: J90 Pleural effusion, not elsewhere classified (principal) ==

== ENCOUNTER → 2022-01-09 | Outpatient (REF) | payer MEDICARE, OTHER ==
[2022-01-09 13:23] LABS: HEMOGLOBIN 12.8 g/dl (12.0-15.5); MEAN CORPUSCULAR VOLUME 87.5 fl (80.0-96.0); PLATELET COUNT, AUTOMATED 270 10^3/uL (150-450); RED BLOOD COUNT 4.57 10^6/uL (4.00-5.40); WHITE BLOOD COUNT 6.5 10^3/uL (4.0-10.0)
[2022-01-09 13:30] LABS: ALBUMIN 3.7 GM/DL (3.2-5.2); ALT/SGPT 20 U/L (12-78); BILIRUBIN,TOTAL 0.7 MG/DL (0.2-1.0); BLOOD UREA NITROGEN 15 MG/DL (7-18); CARBON DIOXIDE LEVEL 26 MEQ/L (21-32); CHLORIDE LEVEL 106 MEQ/L (98-107); FERRITIN 24 NG/ML (8-252); GLOMERULAR FILTRATION RATE > 60.0 (>45); GLUCOSE, FASTING 172 MG/DL (70-100); IRON (FE) 66 UG/DL (50-170); PERCENT SATURATION 18.1 % (13.2-45.0); POTASSIUM SERUM 4.2 MEQ/L (3.5-5.1); SODIUM LEVEL 137 MEQ/L (136-145); TOTAL IRON BINDING CAPACITY 364 UG/DL (250-450); TOTAL PROTEIN 7.6 GM/DL (6.4-8.2)
== END ==
LOC: M SFHCADAM 09:50
PROVIDERS: ATTEND Family Medicine
DX: J90 Pleural effusion, not elsewhere classified (principal); D50.9 Iron deficiency anemia, unspecified; R00.0 Tachycardia, unspecified

== ENCOUNTER → 2022-01-17 | Outpatient (REF) | payer MEDICARE, OTHER ==
[2022-01-17 15:00] LABS: HEMOGLOBIN A1c 5.5 %
== END ==
LOC: M SFHCADAM 08:29
PROVIDERS: ATTEND Physician Assistant
DX: J90 Pleural effusion, not elsewhere classified (principal); D50.9 Iron deficiency anemia, unspecified; R00.0 Tachycardia, unspecified

== ENCOUNTER → 2022-01-25 | Outpatient (CLI) | payer MEDICARE, OTHER ==
[~2022-01-25] MED LIST changes: +ISOVUE-300 61% 50ML VIAL As Ordered ONE
== END ==
LOC: M RAD 09:38
PROVIDERS: ATTEND Physician Assistant
DX: J90 Pleural effusion, not elsewhere classified (principal)
CPT/HCPCS: 71260; Q9967

== ENCOUNTER → 2022-02-08 | Outpatient (CLI) | payer MEDICARE, OTHER ==
[~2022-02-08] MED LIST changes: +GASTROGRAFIN SOLUTION 30ML (Q9963) As Ordered ONE; -ISOVUE-300 61% 50ML VIAL As Ordered ONE; +ISOVUE-370 76% 100ML VIAL As Ordered ONE
== END ==
LOC: M RAD 14:31
PROVIDERS: ATTEND Physician Assistant
DX: K44.9 Diaphragmatic hernia without obstruction or gangrene (principal); K66.0 Peritoneal adhesions (postprocedural) (postinfection); Z85.038 Personal history of other malignant neoplasm of large intestine; C18.9 Malignant neoplasm of colon, unspecified; R91.8 Other nonspecific abnormal finding of lung field
CPT/HCPCS: 74178; Q9963; Q9967

== ENCOUNTER → 2024-12-08 | Outpatient (REF) | payer MEDICARE, OTHER ==
[~2024-12-08] MED LIST changes: -GASTROGRAFIN SOLUTION 30ML (Q9963) As Ordered ONE; -ISOVUE-370 76% 100ML VIAL As Ordered ONE
[2024-12-08 14:10] LABS: IRON (FE) 30.0 UG/DL (50-170)
[2024-12-08 14:11] LABS: PERCENT SATURATION 7.7 % (13.2-45.0)
[2024-12-08 14:25] LABS: VITAMIN B12 LEVEL 390.0 PG/ML (211-911)
== END ==
LOC: M SFHCADAM 10:05
PROVIDERS: ATTEND Physician Assistant
DX: D64.9 Anemia, unspecified (principal)

== ENCOUNTER 2025-01-06 08:06 | Day surgery (SDC) | payer MEDICARE, OTHER ==
[~2025-01-06] VITALS: Ht 152.4 cm; Wt 64.4 kg
[~2025-01-06 08:06] MED LIST changes: +BACI1TAB20 PO; +VITAD400CA FT
[2025-01-06] MEDS ORDERED: LIDOCAINE 2% 100 MG/5 ML SDV (FOR ANES.) As Ordered ONE (09:11)
[2025-01-06 09:21] VITALS: TEMP 98
[2025-01-06 09:42] VITALS: BP 124/70; O2SAT 95
== END 2025-01-06 09:49 | disposition home or self-care (01) ==
LOC: M OPP 08:06
PROVIDERS: ATTEND Surgery
DX: K57.30 Diverticulosis of large intestine without perforation or abscess without bleeding (principal); D50.9 Iron deficiency anemia, unspecified; K44.9 Diaphragmatic hernia without obstruction or gangrene; K29.70 Gastritis, unspecified, without bleeding; Z88.1 Allergy status to other antibiotic agents; Z79.899 Other long term (current) drug therapy; Z98.0 Intestinal bypass and anastomosis status

== ENCOUNTER → 2025-02-09 | Outpatient (REF) | payer MEDICARE, OTHER | LOC: M SFHCADAM 12:47 | PROVIDERS: ATTEND Physician Assistant | DX: D64.9 Anemia, unspecified (principal) ==

== ENCOUNTER → 2025-02-16 | Outpatient (REF) | payer MEDICARE, OTHER ==
[2025-02-16 13:38] LABS: BASO # 0.1 10^3/uL (0.0-0.2); BASO % 1.0 % (0.0-1.0); EOS # 0.0 10^3/uL (0.0-0.5); EOS % 0.0 % (0.0-3.0); LYMPH # 1.2 10^3/uL (1.5-5.0); LYMPH % 15.9 % (24.0-44.0); MONO # 0.6 10^3/uL (0.0-0.8); MONO % 7.5 % (2.0-8.0); NEUTROPHILS # 5.8 10^3/uL (1.5-8.5); NEUTROPHILS % 75.2 % (36.0-66.0); PLATELET COUNT, AUTOMATED 286 10^3/uL (150-450)
== END ==
LOC: M SFHCADAM 10:25
PROVIDERS: ATTEND Physician Assistant
DX: D50.9 Iron deficiency anemia, unspecified (principal)